=== PATIENT | female | born 1955 | race Caucasian/White ===

== ENCOUNTER 2017-12-19 11:14 | Emergency (ER) | payer MEDICARE, MEDICAID ==
[~2017-12-19] VITALS: Ht 167.6 cm; Wt 74.5 kg
[~2017-12-19 11:14] MED LIST: ALBU8.5H4 IH; ALBU8.5H8 IH; ALBU8HFA PO; ESCI10TA45 PO; FLUT16SP2 BOTHNARES; GUAI120015 PO; HYDR50CA PO; ONDA8TAB6 PO; PREG75CA30 PO; PSEU-259 PO; [UNRECOGNIZED DRUG - CODE] IT
[2017-12-19 11:48] LABS: CLARITY,URINE CLEAR (Clear); COLOR,URINE YELLOW (Yellow); GLUCOSE, URINE NEGATIVE (Neg); KETONES,URINE NEGATIVE (Neg); LEUKOCYTE ESTERASE ,URINE NEGATIVE (Neg); NITRITES, URINE NEGATIVE (Neg); OCCULT BLOOD,URINE SMALL (Neg); PH,URINE 6.5 (4.8-8.0); PROTEIN,URINE NEGATIVE (Neg); UROBILINOGEN,URINE 0.2 E.U/dL (0.2-1.0)
[2017-12-19 11:50] LABS: UA COLLECTION TYPE CLN CATCH MIDSTREAM
[2017-12-19 11:57] LABS: BACTERIA,URINE NONE SEEN /HPF (Neg); RBC,URINE 0-2 /HPF (0-2); SQUAMOUS EPITHELIAL CELL,UR FEW /LPF (FEW); WBC,URINE 0-4 /HPF (0-4)
[2017-12-19] MEDS ORDERED: IBUP-1984 PO (11:59)
[2017-12-19 12:04] VITALS: BP 146/75
== END 2017-12-19 12:05 | disposition home or self-care (01) ==
LOC: ER 11:15
DX: N23 Unspecified renal colic (principal); I10 Essential (primary) hypertension; M79.7 Fibromyalgia; F12.10 Cannabis abuse, uncomplicated; Z98.890 Other specified postprocedural states; Z88.8 Allergy status to other drugs, medicaments and biological substances; Z79.899 Other long term (current) drug therapy
CPT/HCPCS: 81001; 99283

== ENCOUNTER 2018-03-10 19:25 | Emergency (ER) | payer MEDICARE, MEDICAID ==
[~2018-03-10] VITALS: Ht 167.6 cm; Wt 71.0 kg
[2018-03-10 19:51] VITALS: BP 128/88
[2018-03-10] MEDS ORDERED: dexamethasone 4mg tablet PO ONE (22:05)
[2018-03-10] MEDS ORDERED: naproxen 500mg tablet PO ONE (22:05)
[2018-03-10] MEDS ORDERED: diphenhydrAMINE 25 MG/10 ML UD oral solution PO ONE (22:05)
[2018-03-10] MEDS ORDERED: NAPR-56 PO (22:06)
== END 2018-03-10 22:37 | disposition home or self-care (01) ==
LOC: ER 19:26
DX: H92.02 Otalgia, left ear (principal); R50.9 Fever, unspecified; I10 Essential (primary) hypertension; M19.90 Unspecified osteoarthritis, unspecified site; F12.90 Cannabis use, unspecified, uncomplicated; Z90.710 Acquired absence of both cervix and uterus; Z98.890 Other specified postprocedural states; Z88.1 Allergy status to other antibiotic agents; Z88.8 Allergy status to other drugs, medicaments and biological substances; Z79.899 Other long term (current) drug therapy
CPT/HCPCS: 99284; J8540; Q0163

== ENCOUNTER 2018-06-22 16:44 | Emergency (ER) | payer MEDICARE, MEDICAID ==
[~2018-06-22] VITALS: Ht 167.6 cm; Wt 71.0 kg
[2018-06-22 17:12] VITALS: BP 138/87
[2018-06-22] MEDS ORDERED: SULF1TAB49 PO (17:54)
== END 2018-06-22 18:03 | disposition home or self-care (01) ==
LOC: ER 16:44
DX: L02.416 Cutaneous abscess of left lower limb (principal); I10 Essential (primary) hypertension; M19.90 Unspecified osteoarthritis, unspecified site; F12.90 Cannabis use, unspecified, uncomplicated; Z90.710 Acquired absence of both cervix and uterus; Z88.1 Allergy status to other antibiotic agents; Z88.8 Allergy status to other drugs, medicaments and biological substances; Z79.899 Other long term (current) drug therapy
CPT/HCPCS: 99283

== ENCOUNTER 2018-09-18 11:38 | Emergency (ER) | payer MEDICARE, MEDICAID ==
[~2018-09-18] VITALS: Ht 160 cm; Wt 73.6 kg
[~2018-09-18 11:38] MED LIST changes: +FLUC200T PO
[2018-09-18 11:41] VITALS: BP 147/96
[2018-09-18] MEDS ORDERED: MUPI22OI30 TOP (12:42)
== END 2018-09-18 13:11 | disposition home or self-care (01) ==
LOC: ER 11:38
DX: L73.8 Other specified follicular disorders (principal); I10 Essential (primary) hypertension; M19.90 Unspecified osteoarthritis, unspecified site; F12.90 Cannabis use, unspecified, uncomplicated; Z90.710 Acquired absence of both cervix and uterus; Z98.890 Other specified postprocedural states; Z88.1 Allergy status to other antibiotic agents; Z88.8 Allergy status to other drugs, medicaments and biological substances; Z79.899 Other long term (current) drug therapy
CPT/HCPCS: 99283

== ENCOUNTER 2018-12-31 11:59 | Emergency (ER) | payer MEDICARE, MEDICAID ==
[~2018-12-31] VITALS: Ht 170.2 cm; Wt 72.7 kg
[2018-12-31 12:09] VITALS: BP 140/82
[2018-12-31] MEDS ORDERED: HYDROcodone/acetaminophen 5mg/325mg tablet PO ONE (12:30)
[2018-12-31] MEDS ORDERED: metroNIDAZOLE 500mg tablet PO ONE (12:30)
[2018-12-31] MEDS ORDERED: ciprofloxacin 250mg tablet PO ONE (12:30)
[2018-12-31] MEDS ORDERED: ondansetron 4mg rapidly disintigrating tab PO ONE (12:30)
[2018-12-31] MEDS ORDERED: BISA-155 PO (12:31)
[2018-12-31] MEDS ORDERED: POLY119P2 PO (12:31)
[2018-12-31] MEDS ORDERED: ONDA8TAB6 PO (12:31)
[2018-12-31] MEDS ORDERED: METR-159 PO (12:31)
[2018-12-31] MEDS ORDERED: sulfamethoxazole/trimethoprim DS (800/160mg) tablet PO ONE (12:35)
[2018-12-31] MEDS ORDERED: SULF1TAB49 PO (12:36)
== END 2018-12-31 12:58 | disposition home or self-care (01) ==
LOC: ER 12:00
DX: K57.92 Diverticulitis of intestine, part unspecified, without perforation or abscess without bleeding (principal); K59.00 Constipation, unspecified; I10 Essential (primary) hypertension; M19.90 Unspecified osteoarthritis, unspecified site; F12.90 Cannabis use, unspecified, uncomplicated; Z90.710 Acquired absence of both cervix and uterus; Z88.1 Allergy status to other antibiotic agents; Z88.8 Allergy status to other drugs, medicaments and biological substances
CPT/HCPCS: 99284; J3490

== ENCOUNTER 2019-01-25 15:11 | Emergency (ER) | payer MEDICARE, MEDICAID ==
[~2019-01-25] VITALS: Ht 167.6 cm; Wt 75.0 kg
[~2019-01-25 15:11] MED LIST changes: +BISA-155 PO; +POLY119P2 PO
[2019-01-25 15:58] LABS: BASOPHILS % (AUTO) 0.4 % (0-1); EOSINOPHILS # (AUTO) 0.1 X10'3 (0-0.9); EOSINOPHILS % (AUTO) 1.4 % (0-6); HEMATOCRIT 37.6 % (35.0-45.0); HEMOGLOBIN 13.2 g/dl (12.0-16.0); LYMPHOCYTES # (AUTO) 2.8 X10'3 (1.1-4.8); LYMPHOCYTES % (AUTO) 33.8 % (21-51); MEAN CORPUSCULAR HEMOGLOBIN 30.8 PG (27.0-31.0); MEAN CORPUSCULAR HGB CONC 35.2 g/dL (33.0-36.5); MEAN CORPUSCULAR VOLUME 87.7 FL (78-98); MEAN PLATELET VOLUME 6.5 FL (7.4-10.4); MONOCYTES # (AUTO) 0.4 X10'3 (0-0.9); MONOCYTES % (AUTO) 5.3 % (2-12); NEUTROPHILS # (AUTO) 4.8 X10'3 (1.8-7.7); NEUTROPHILS % (AUTO) 59.1 % (42-75); PLATELET COUNT 229 X10'3 (140-440); RED BLOOD COUNT 4.28 X10'6 (4.20-5.60); RED CELL DISTRIBUTION WIDTH 13.7 % (11.5-14.5); WHITE BLOOD COUNT 8.2 X10'3 (4.5-11.0)
[2019-01-25 16:05] LABS: ALANINE AMINOTRANSFERASE 21 U/L (12-78); ALBUMIN 3.4 G/DL (3.4-5.0); ALKALINE PHOSPHATASE 86 IU/L (46-116); ANION GAP 8 (8-16); ASPARTATE AMINO TRANSFERASE 22 U/L (10-37); BILIRUBIN,TOTAL 0.3 MG/DL (0.1-1.0); BLOOD UREA NITROGEN 18 MG/DL (7-18); BUN/CREATININE RATIO 15.9 (6.6-38.0); CALCIUM 8.9 MG/DL (8.5-10.1); CHLORIDE 107 MMOL/L (99-107); CREATININE 1.13 MG/DL (0.40-0.90); GLUCOSE 102 MG/DL (70-104); POTASSIUM 4.2 MMOL/L (3.5-5.1); SODIUM 139 MMOL/L (135-145); TOTAL CARBON DIOXIDE 24.5 MMOL/L (24-32); TOTAL PROTEIN 6.9 G/DL (6.4-8.2); eGFR 49 ML/MIN
[2019-01-25 16:44] LABS: LIPASE 334 U/L (73-393)
[2019-01-25] MEDS: morphine 4 MG/ML inj SYRINge IV PRN (17:10)
[2019-01-25] MEDS: ondansetron/PF 4mg/2ml inj IV ONE (17:11)
[2019-01-25] MEDS: normal saline 1000ML IV soln IVB ONE (17:11)
[2019-01-25] MEDS ORDERED: HYDR-3965 PO (17:34)
[2019-01-25 17:50] VITALS: BP 173/88
== END 2019-01-25 17:55 | disposition home or self-care (01) ==
LOC: ER 15:12
DX: K62.89 Other specified diseases of anus and rectum (principal); R10.31 Right lower quadrant pain; I10 Essential (primary) hypertension; M19.90 Unspecified osteoarthritis, unspecified site; G89.29 Other chronic pain; M79.7 Fibromyalgia; F41.9 Anxiety disorder, unspecified; F32.9 Major depressive disorder, single episode, unspecified; F12.90 Cannabis use, unspecified, uncomplicated; Z90.710 Acquired absence of both cervix and uterus; Z98.890 Other specified postprocedural states; Z88.1 Allergy status to other antibiotic agents; Z88.8 Allergy status to other drugs, medicaments and biological substances; Z79.899 Other long term (current) drug therapy
CPT/HCPCS: 36415; 74176; 80053; 83690; 85025; 85610; 96374; 96375; 99284; J2270; J2405; J7030

== ENCOUNTER 2019-11-15 10:47 | Emergency (ER) | payer MEDICARE, MEDICAID ==
[~2019-11-15] VITALS: Ht 167.6 cm; Wt 75.1 kg
[2019-11-15 11:39] LABS: CLARITY,URINE CLEAR (Clear); COLOR,URINE STRAW (Yellow); GLUCOSE, URINE NEGATIVE (Neg); KETONES,URINE NEGATIVE (Neg); LEUKOCYTE ESTERASE ,URINE NEGATIVE (Neg); NITRITES, URINE NEGATIVE (Neg); OCCULT BLOOD,URINE MODERATE (Neg); PH,URINE 6.5 (4.8-8.0); PROTEIN,URINE NEGATIVE (Neg); UA COLLECTION TYPE CLN CATCH MIDSTREAM; UROBILINOGEN,URINE 0.2 E.U/dL (0.2-1.0)
[2019-11-15 11:39] LABS: BASOPHILS # (AUTO) 0.1 X10'3 (0-0.2); BASOPHILS % (AUTO) 0.7 % (0-1); EOSINOPHILS # (AUTO) 0.1 X10'3 (0-0.9); EOSINOPHILS % (AUTO) 0.9 % (0-6); HEMATOCRIT 39.1 % (35.0-45.0); HEMOGLOBIN 13.1 g/dl (12.0-16.0); LYMPHOCYTES # (AUTO) 2.6 X10'3 (1.1-4.8); LYMPHOCYTES % (AUTO) 29.3 % (21-51); MEAN CORPUSCULAR HEMOGLOBIN 29.8 PG (27.0-31.0); MEAN CORPUSCULAR HGB CONC 33.4 g/dL (33.0-36.5); MEAN PLATELET VOLUME 6.6 FL (7.4-10.4); MONOCYTES # (AUTO) 0.4 X10'3 (0-0.9); MONOCYTES % (AUTO) 4.7 % (2-12); NEUTROPHILS # (AUTO) 5.8 X10'3 (1.8-7.7); NEUTROPHILS % (AUTO) 64.4 % (42-75); PLATELET COUNT 268 X10'3 (140-440); RED BLOOD COUNT 4.39 X10'6 (4.20-5.60); RED CELL DISTRIBUTION WIDTH 13.4 % (11.5-14.5)
[2019-11-15 11:48] LABS: SQUAMOUS EPITHELIAL CELL,UR MODERATE /LPF (FEW)
[2019-11-15 11:49] LABS: BACTERIA,URINE FEW /HPF (Neg); WBC,URINE 0-4 /HPF (0-4)
[2019-11-15 11:56] LABS: ALANINE AMINOTRANSFERASE 14 U/L (12-78); ALBUMIN 3.2 G/DL (3.4-5.0); ALBUMIN/GLOBULIN RATIO 0.9 (1.1-1.5); ALKALINE PHOSPHATASE 82 IU/L (46-116); ANION GAP 7 (8-16); ASPARTATE AMINO TRANSFERASE 19 U/L (10-37); BILIRUBIN,TOTAL 0.2 MG/DL (0.1-1.0); BLOOD UREA NITROGEN 13 MG/DL (7-18); BUN/CREATININE RATIO 12.4 (6.6-38.0); CALCIUM 8.6 MG/DL (8.5-10.1); CHLORIDE 109 MMOL/L (99-107); CREATININE 1.05 MG/DL (0.40-0.90); GLUCOSE 100 MG/DL (70-104); LIPASE 226 U/L (73-393); POTASSIUM 4.1 MMOL/L (3.5-5.1); SODIUM 143 MMOL/L (135-145); TOTAL CARBON DIOXIDE 27.5 MMOL/L (24-32); TOTAL PROTEIN 6.7 G/DL (6.4-8.2); eGFR 53 ML/MIN
[2019-11-15] MEDS ORDERED: ondansetron/PF 4mg/2ml inj IV ONE (12:00)
[2019-11-15] MEDS ORDERED: normal saline 1000ML IV soln IVB ONE (12:00)
[2019-11-15] MEDS ORDERED: ONDA4TAB6 PO (12:45)
[2019-11-15 13:05] VITALS: BP 111/61
== END 2019-11-15 13:21 | disposition home or self-care (01) ==
LOC: ER 10:48
DX: R11.2 Nausea with vomiting, unspecified (principal); R19.7 Diarrhea, unspecified; R10.10 Upper abdominal pain, unspecified; I10 Essential (primary) hypertension; M19.90 Unspecified osteoarthritis, unspecified site; G89.29 Other chronic pain; M79.7 Fibromyalgia; F41.9 Anxiety disorder, unspecified; F32.9 Major depressive disorder, single episode, unspecified; F12.90 Cannabis use, unspecified, uncomplicated; Z87.440 Personal history of urinary (tract) infections; Z90.710 Acquired absence of both cervix and uterus; Z98.890 Other specified postprocedural states; Z88.1 Allergy status to other antibiotic agents; Z88.8 Allergy status to other drugs, medicaments and biological substances; Z79.899 Other long term (current) drug therapy
CPT/HCPCS: 36415; 80053; 81001; 83690; 85025; 96361; 96374; 99283; J2405; J7030

== ENCOUNTER 2020-02-16 13:09 | Emergency (ER) | payer MEDICARE, MEDICAID ==
[~2020-02-16] VITALS: Ht 167.6 cm; Wt 70.0 kg
[~2020-02-16 13:09] MED LIST changes: -ALBU8.5H8 IH; -ALBU8HFA PO; -BISA-155 PO; -ESCI10TA45 PO; +EZET10TA48 PO; -FLUC200T PO; -FLUT16SP2 BOTHNARES; -GUAI120015 PO; +MILN50TA PO; +OMEP-50 PO; -ONDA8TAB6 PO; -POLY119P2 PO; -PREG75CA30 PO; -PSEU-259 PO; +SIMV-45 PO; -[UNRECOGNIZED DRUG - CODE] IT
[2020-02-16 13:17] VITALS: BP 144/101
== END 2020-02-16 15:07 | disposition home or self-care (01) ==
LOC: ER 13:10
DX: L98.9 Disorder of the skin and subcutaneous tissue, unspecified (principal); I10 Essential (primary) hypertension; F41.9 Anxiety disorder, unspecified; F32.9 Major depressive disorder, single episode, unspecified; G89.29 Other chronic pain; M19.90 Unspecified osteoarthritis, unspecified site; F12.90 Cannabis use, unspecified, uncomplicated; Z90.49 Acquired absence of other specified parts of digestive tract; Z98.890 Other specified postprocedural states; Z88.8 Allergy status to other drugs, medicaments and biological substances; Z79.899 Other long term (current) drug therapy
CPT/HCPCS: 99281

== ENCOUNTER 2020-02-19 07:25 | Inpatient (IN) | payer MEDICARE, MEDICAID ==
[2020-02-12 16:20] LABS: BASOPHILS % (AUTO) 0.3 % (0-1); EOSINOPHILS # (AUTO) 0.2 X10'3 (0-0.9); EOSINOPHILS % (AUTO) 1.4 % (0-6); LYMPHOCYTES # (AUTO) 3.5 X10'3 (1.1-4.8); LYMPHOCYTES % (AUTO) 32.6 % (21-51); MEAN CORPUSCULAR HEMOGLOBIN 29.9 PG (27.0-31.0); MEAN CORPUSCULAR HGB CONC 33.4 g/dL (33.0-36.5); MEAN CORPUSCULAR VOLUME 89.7 FL (78-98); MEAN PLATELET VOLUME 6.4 FL (7.4-10.4); MONOCYTES # (AUTO) 0.5 X10'3 (0-0.9); NEUTROPHILS # (AUTO) 6.5 X10'3 (1.8-7.7); NEUTROPHILS % (AUTO) 60.7 % (42-75); PRE OP HEMATOCRIT 42.6 % (35.0-45.0); PRE OP HEMOGLOBIN 14.2 g/dL (12.0-16.0); PRE OP PLATELET COUNT 264 X10'3 (140-440); RED BLOOD COUNT 4.75 X10'6 (4.20-5.60); RED CELL DISTRIBUTION WIDTH 13.6 % (11.5-14.5)
[2020-02-12 16:36] LABS: ALBUMIN 3.8 G/DL (3.4-5.0); ALBUMIN/GLOBULIN RATIO 1.1 (1.1-1.5); ALKALINE PHOSPHATASE 87 IU/L (46-116); BLOOD UREA NITROGEN 21 MG/DL (7-18); BUN/CREATININE RATIO 17.5 (6.6-38.0); CALCIUM 9.1 MG/DL (8.5-10.1); CHLORIDE 108 MMOL/L (99-107); PRE OP ALT 21 U/L (30-65); PRE OP ANION GAP 5 (8-16); PRE OP AST 18 U/L (10-37); PRE OP BILIRUB, TOTAL 0.2 MG/DL (0.0-1.0); PRE OP GLUCOSE 116 MG/DL (70-104); PRE OP POTASSIUM 3.8 MMOL/L (3.4-5.1); PRE OP SODIUM 141 MMOL/L (135-145); TOTAL CARBON DIOXIDE 28.4 MMOL/L (24-32); TOTAL PROTEIN 7.4 G/DL (6.4-8.2); eGFR 46 ML/MIN
[~2020-02-19] VITALS: Ht 167.6 cm; Wt 68.0 kg
[2020-02-19] VITALS (18 sets, daily range): BP systolic 137–170; BP diastolic 65–105
[~2020-02-19 07:25] MED LIST changes: +ceFAZolin 2gm in dextrose, iso 50 ML IV ONE; +famotidine 20mg tablet PO ONE; +ringers solution, lacted 1,000 ML IV SCH; +tranexamic acid inj. 680 MG in normal saline 100ml IV soln 100 ML IV ONE; +tranexamic acid inj. 680 MG in normal saline 100ml IV soln 93.2 ML IV ONE; +vancomycin/NS 1 GM ADD-VANTAGE 250 ML IV ONE
[2020-02-19] MEDS ORDERED: scopolamine 1.5mg patch.TD72 TD ONE (10:34)
[2020-02-19] MEDS ORDERED: ROPIVAcaine 0.5% (5mg/ml) 30ml vial ONE ×2 (11:03→11:54)
[2020-02-19] MEDS ORDERED: ketorolac trometh. 30mg/ml inj. ONE (11:22)
[2020-02-19] MEDS ORDERED: fentaNYL/PF 50MCG/1 ML 2ML syringe ONE (11:51)
[2020-02-19] MEDS ORDERED: MIDAZolam 5mg/5ml vial ONE (11:52)
[2020-02-19] MEDS ORDERED: sevoflurane 250ml liquid IH ONE (11:53)
[2020-02-19] MEDS ORDERED: propofol inj 20 ML IV ONE (11:54)
[2020-02-19] MEDS ORDERED: ringers solution, lacted 1,000 ML IV SCH (13:46)
[2020-02-19] MEDS ORDERED: ROPIVAcaine 0.2%/PF PUMP/bolus 550 ML INTERSCALE SCH (13:46)
[2020-02-19] MEDS ORDERED: proCHLORperazine 10 MG/2 ml inj IV PRN ×2 (13:50→21:10)
[2020-02-19] MEDS ORDERED: ondansetron/PF 4mg/2ml inj IV PRN (13:50)
[2020-02-19] MEDS ORDERED: morphine 2 MG/ML inj. syringe IV PRN (13:50)
[2020-02-19] MEDS ORDERED: morphine 4 MG/ML inj SYRINge IV PRN (13:50)
[2020-02-19] MEDS ORDERED: ROPIVAcaine 0.2% (10 MG/5 ML) BOLUS INJECTION INTERSCALE PRN (13:50)
[2020-02-19] MEDS ORDERED: meperidine/PF 25mg/ml syringe IV PRN ×3 (13:50)
--- NOTE | 2020-02-19 14:30 | NUR ---
Received from OR via BED, accompanied by Anesthesiologist STEVEN and report given by Anesthesiolgist. PT SLEEPY, OXYGENATING WELL ON 10 LPM O2 VIA MASK, NO RESP DISTRESS NOTED. PT DENIES PAIN, HAD RISB. SEVERE NAUSEA WITH EMESIS. MEDICATED WITH ZOFRAN. R SHOULDER DSG CDI, SHOULDER WRAP IN PLACE WITH POWDER PACK. RUE IN SLING, ELBOW PROTECTED BY PILLOW. RADIAL PULSE PALP. SCDS ON, VSS.
[2020-02-19] MEDS ORDERED: bisacodyl 10mg suppository rectal RC PRN (15:00)
[2020-02-19] MEDS ORDERED: diphenhydrAMINE 25mg capsule PO PRN ×2 (15:00)
[2020-02-19] MEDS ORDERED: HYDROmorphone 1 mg/ml syringe IV PRN (15:00)
[2020-02-19] MEDS ORDERED: acetaminophen 325mg tablet PO PRN (15:00)
[2020-02-19] MEDS ORDERED: HYDROmorphone inj. 0.5 MG/0.5 ML DISP.SYRIN IV PRN (15:00)
[2020-02-19] MEDS ORDERED: magnesium hydroxide 30ml (MOM) UD suspension PO PRN (15:00)
[2020-02-19] MEDS ORDERED: oxyCODONE IR 5mg (immed. release) tablet PO PRN (15:00)
[2020-02-19] MEDS ORDERED: albuterol 2.5 MG/3 ML nebule NEB PRN (15:05)
--- NOTE | 2020-02-19 16:30 | NUR ---
Report called to receiving nurse. Transferred via BED Belongings WITH PT, 2 BAGS OF CLOTHING. NAUSEA RESOLVED, PT EATING ICE CHIPS. VOIDED VIA BSC.VSS. NO PAIN, ON-Q BALL HOOKED TO CATHETER PER ORDERS. TRANSFERRED TO ORTHO FLOOR IN STABLE CONDITION. Special Issues communicated to receiving nurse.
[2020-02-19] MEDS: potassium cl 20mEq in 1/2 NS 1,000 ML IV SCH (16:45)
[2020-02-19] MEDS: ceFAZolin 1GM/D5W- ADD-VANTAGE 50 ML IV SCH ×2 (17:37→23:26)
[2020-02-19] MEDS ORDERED: tranexamic acid inj. 680 MG in normal saline 100ml IV soln 100 ML IV ONE (18:00)
--- NOTE | 2020-02-19 18:28 | NUR ---
Problems reprioritized. Patient report given, questions answered & plan of care reviewed with Maryam CHEN.
[2020-02-19] MEDS ORDERED: vancomycin/NS 1 GM ADD-VANTAGE 250 ML IV SCH (20:00)
[2020-02-19] MEDS: MILNACIPRAN HCL 50 MG TABLET PO SCH (20:00)
[2020-02-19] MEDS: ondansetron/PF 4mg/2ml inj IV PRN (20:12)
[2020-02-19] MEDS ORDERED: atorvastatin 20mg tablet PO SCH (21:00)
[2020-02-19] MEDS ORDERED: hydrOXYzine 25 MG tablet PO SCH (21:00)
[2020-02-19] MEDS ORDERED: sennosides 8.6mg tablet PO SCH (21:00)
[2020-02-19] MEDS ORDERED: ezetimibe 10mg tablet PO SCH (21:00)
[2020-02-19] MEDS ORDERED: LORazepam 2 mg/ml vial IV PRN (21:10)
[2020-02-19] MEDS: acetaminophen 325mg tablet PO SCH (21:54)
[2020-02-20 02:00] VITALS: BP 154/94
[2020-02-20] MEDS: acetaminophen 325mg tablet PO SCH ×3 (02:10→13:43)
[2020-02-20] MEDS: potassium cl 20mEq in 1/2 NS 1,000 ML IV SCH ×2 (02:15→08:14)
[2020-02-20] MEDS: oxyCODONE IR 5mg (immed. release) tablet PO PRN ×3 (03:03→13:43)
[2020-02-20 06:10] VITALS: BP 117/70
--- NOTE | 2020-02-20 06:22 | NUR ---
Problems reprioritized. Patient report given, questions answered & plan of care reviewed with GUSTAVO WORTHY.
--- NOTE | 2020-02-20 06:26 | NUR ---
Patient in room ORTHO 4012. I have received report from Maryam CHEN and had the opportunity to ask questions and assume patient care.
[2020-02-20 07:23] LABS: BASOPHILS % (AUTO) 0.3 % (0-1); EOSINOPHILS % (AUTO) 0.1 % (0-6); HEMOGLOBIN 11.3 g/dl (12.0-16.0); LYMPHOCYTES # (AUTO) 1.4 X10'3 (1.1-4.8); LYMPHOCYTES % (AUTO) 13.1 % (21-51); MEAN CORPUSCULAR HEMOGLOBIN 30.4 PG (27.0-31.0); MEAN CORPUSCULAR HGB CONC 34.3 g/dL (33.0-36.5); MEAN CORPUSCULAR VOLUME 88.6 FL (78-98); MEAN PLATELET VOLUME 6.8 FL (7.4-10.4); MONOCYTES # (AUTO) 0.7 X10'3 (0-0.9); NEUTROPHILS # (AUTO) 8.8 X10'3 (1.8-7.7); NEUTROPHILS % (AUTO) 80.5 % (42-75); PLATELET COUNT 201 X10'3 (140-440); RED BLOOD COUNT 3.72 X10'6 (4.20-5.60); RED CELL DISTRIBUTION WIDTH 13.2 % (11.5-14.5); WHITE BLOOD COUNT 10.9 X10'3 (4.5-11.0)
[2020-02-20] MEDS ORDERED: pantoprazole 40mg Tablet.DR PO SCH (07:30)
[2020-02-20 07:39] LABS: ANION GAP 10 (8-16); CHLORIDE 107 MMOL/L (99-107); POTASSIUM 4.6 MMOL/L (3.5-5.1); SODIUM 141 MMOL/L (135-145); TOTAL CARBON DIOXIDE 24.4 MMOL/L (24-32)
[2020-02-20] MEDS ORDERED: ASPI-1 PO (07:56)
[2020-02-20] MEDS ORDERED: ONQPUMP ADDCANAL (07:56)
[2020-02-20] MEDS: MILNACIPRAN HCL 50 MG TABLET PO SCH (08:00)
[2020-02-20] MEDS: ondansetron/PF 4mg/2ml inj IV PRN (08:07)
[2020-02-20] MEDS ORDERED: aspirin 325mg tablet PO SCH (08:30)
[2020-02-20 10:00] VITALS: BP 184/73
[2020-02-20 14:00] VITALS: BP 143/84
--- NOTE | 2020-02-20 14:45 | NUR ---
Patient was discharged at this time and she was taught all dc instructions. She was taken to vehicle in WC
[2020-02-21] MEDS ORDERED: acetaminophen 325mg tablet PO PRN (15:00)
--- NOTE | 2020-02-22 14:14 | NUR ---
Case Management DC follow up: spoke to pt via telephone. s/p: R shoulder reverse TSA, bicep tenodesis. Reports:"feeling pretty darned good" Denies: acute/continuous CP, emergent SOB, resp distress, N/V, COBOS, blurry vision, vertigo, syncope episodes, weakness,emergent general pain, abd tenderness/distension, bladder pain, dysuria, polyuria, hematuria, retention, diarrhea, fever, unexplained bleeding, bruising. Denies s/s infection to surg site. pt is looking forward to showering on tuesday per DC instructions. Verbalizes understanding of s/s that warrant 04-18/ER visit for further evaluation. Verbalizes understanding of new Rx: asa 325 6 wks and why prescribed, resumes current Rx, taking as ordered, no ase r/t polypharmacy. Acknowledges need to schedule/keep follow up appts w/ PCP/Rosio Madrigal, will call to schedule. Dr Latif scheduled. Pt agrees to contact office to confirm that PT is being set up on an outpatient basis. Verbalizes compliance w/DC aftercare. Needs met, questions answered at DC, no further questions or concerns at this time.
== END 2020-02-20 13:45 | disposition home or self-care (01) | DRG 483 ==
LOC: UNDOADMIN 07:25 → PAS IN 07:25 → EDSTATUS 09:15 → PAS IN 14:56 → ORTHO 4S 16:55
PROVIDERS: ADMIT Orthopaedic Surgery; ATTEND Orthopaedic Surgery
PROC: 0LS30ZZ Reposition Right Upper Arm Tendon, Open Approach (ICD-10-PCS; 2020-02-19)
PROC: 3E0T3BZ Introduction of Anesthetic Agent into Peripheral Nerves and Plexi, Percutaneous Approach (ICD-10-PCS; 2020-02-19)
PROC: 0RRJ00Z Replacement of Right Shoulder Joint with Reverse Ball and Socket Synthetic Substitute, Open Approach (ICD-10-PCS; principal; 2020-02-19 11:53)
DX: M19.011 Primary osteoarthritis, right shoulder (principal); D62 Acute posthemorrhagic anemia; M75.121 Complete rotator cuff tear or rupture of right shoulder, not specified as traumatic; E78.5 Hyperlipidemia, unspecified; I10 Essential (primary) hypertension; M65.811 Other synovitis and tenosynovitis, right shoulder; M79.7 Fibromyalgia; F41.8 Other specified anxiety disorders; K21.9 Gastro-esophageal reflux disease without esophagitis; Z88.1 Allergy status to other antibiotic agents; Z80.9 Family history of malignant neoplasm, unspecified; Z84.89 Family history of other specified conditions; Z79.899 Other long term (current) drug therapy
CPT/HCPCS: 36415; 80051; 80053; 82948; 85025; 87081; 94760; 97110; 97161; 97530; A4565; A4618; A7000; C1776; G0378; J0690; J0780; J1885; J2060; J2175; J2250; J2405; J2704; J2795; J3010; J3370; J3480; J7120; Q0177

== ENCOUNTER 2021-02-24 09:58 | Emergency (ER) | payer BC, MEDICAID ==
[~2021-02-24] VITALS: Ht 167.6 cm; Wt 65.9 kg
[~2021-02-24 09:58] MED LIST changes: -MILN50TA PO; -OMEP-50 PO; +PANT-47 PO; -ceFAZolin 2gm in dextrose, iso 50 ML IV ONE; -famotidine 20mg tablet PO ONE; -ringers solution, lacted 1,000 ML IV SCH; -tranexamic acid inj. 680 MG in normal saline 100ml IV soln 100 ML IV ONE; -tranexamic acid inj. 680 MG in normal saline 100ml IV soln 93.2 ML IV ONE; -vancomycin/NS 1 GM ADD-VANTAGE 250 ML IV ONE
[2021-02-24] MEDS ORDERED: ketorolac tromethamine 15mg/ml inj. IM ONE (12:15)
[2021-02-24] MEDS ORDERED: HYDROcodone/acetaminophen 5mg/325mg tablet PO ONE (12:15)
[2021-02-24] MEDS ORDERED: CARI250T PO (12:39)
[2021-02-24] MEDS ORDERED: NAPR-56 PO (12:39)
[2021-02-24] MEDS ORDERED: HYDR-3965 PO (12:39)
[2021-02-24] MEDS ORDERED: BACL10TA PO (12:39)
[2021-02-24] MEDS ORDERED: triamcinolone acetonide 40mg/ml inj IM ONE (12:40)
[2021-02-24 12:48] VITALS: BP 155/89
== END 2021-02-24 13:16 | disposition home or self-care (01) ==
LOC: ER 09:58
DX: M51.16 Intervertebral disc disorders with radiculopathy, lumbar region (principal); I10 Essential (primary) hypertension; M19.90 Unspecified osteoarthritis, unspecified site; G89.29 Other chronic pain; M79.7 Fibromyalgia; M81.0 Age-related osteoporosis without current pathological fracture; F12.90 Cannabis use, unspecified, uncomplicated; Z87.440 Personal history of urinary (tract) infections; Z90.710 Acquired absence of both cervix and uterus; Z98.890 Other specified postprocedural states; Z79.899 Other long term (current) drug therapy; Z88.1 Allergy status to other antibiotic agents; Z88.8 Allergy status to other drugs, medicaments and biological substances; Z87.81 Personal history of (healed) traumatic fracture
CPT/HCPCS: 72131; 96372; 99284; J1885; J3301

== ENCOUNTER → 2021-03-24 | Emergency (ER) | payer BC, MEDICAID ==
[~2021-03-24] VITALS: Ht 167.6 cm; Wt 65.0 kg
[~2021-03-24] MED LIST changes: +BACL10TA PO; +CARI250T PO; +CYCL-1 PO; +CefTRIAXone/D5W-Rocephin 1gm 50 ML IV ONE; +HYDR-3965 PO; +LIDOcaine 5% patch TP ONE; +LORazepam 2 mg/ml vial IV ONE; +NAPR-56 PO; +ONDA4TAB6 PO; +famotidine/PF 10 mg/ml inj IV ONE; +haloperidol lactate 5mg/ml inj IM ONE; +ketorolac trometh. 30mg/ml inj. IV ONE; +metoclopramide 5 mg/ml inj IV ONE; +morphine 4 MG/ML inj SYRINge IV ONE; +normal saline 1000ml 1,000 ML IV ONE; +ondansetron/PF 4mg/2ml inj IV ONE; +orphenadrine citrate 60mg/2ml inj. IM ONE; +pantoprazole 40 MG vial IV ONE
[2021-03-24 06:45] LABS: CLARITY,URINE CLEAR (Clear); COLOR,URINE STRAW (Yellow); GLUCOSE, URINE NEGATIVE (Neg); KETONES,URINE NEGATIVE (Neg); LEUKOCYTE ESTERASE ,URINE NEGATIVE (Neg); NITRITES, URINE NEGATIVE (Neg); OCCULT BLOOD,URINE MODERATE (Neg); PH,URINE 5.5 (4.8-8.0); PROTEIN,URINE 30 mg/dl (Neg); UROBILINOGEN,URINE 0.2 E.U/dL (0.2-1.0)
[2021-03-24 06:47] LABS: UA COLLECTION TYPE CLN CATCH MIDSTREAM
[2021-03-24 06:57] LABS: BACTERIA,URINE 3+ /HPF (Neg); SQUAMOUS EPITHELIAL CELL,UR FEW /LPF (FEW); WBC,URINE NONE SEEN /HPF (0-4)
[2021-03-24 09:10] LABS: BASOPHILS # (AUTO) 0.1 X10'3 (0-0.2); BASOPHILS % (AUTO) 0.3 % (0-1); EOSINOPHILS # (AUTO) 0.1 X10'3 (0-0.9); EOSINOPHILS % (AUTO) 0.6 % (0-6); HEMATOCRIT 43.9 % (35.0-45.0); HEMOGLOBIN 14.5 g/dl (12.0-16.0); LYMPHOCYTES # (AUTO) 2.3 X10'3 (1.1-4.8); LYMPHOCYTES % (AUTO) 13.1 % (21-51); MEAN CORPUSCULAR HEMOGLOBIN 29.6 PG (27.0-31.0); MEAN CORPUSCULAR VOLUME 89.7 FL (78-98); MEAN PLATELET VOLUME 7.2 FL (7.4-10.4); MONOCYTES # (AUTO) 0.9 X10'3 (0-0.9); MONOCYTES % (AUTO) 4.8 % (2-12); NEUTROPHILS # (AUTO) 14.5 X10'3 (1.8-7.7); NEUTROPHILS % (AUTO) 81.2 % (42-75); PLATELET COUNT 334 X10'3 (140-440); RED BLOOD COUNT 4.89 X10'6 (4.20-5.60); RED CELL DISTRIBUTION WIDTH 14.1 % (11.5-14.5); WHITE BLOOD COUNT 17.8 X10'3 (4.5-11.0)
[2021-03-24 09:23] LABS: ALANINE AMINOTRANSFERASE 52 U/L (12-78); ALBUMIN 4.1 G/DL (3.4-5.0); ALBUMIN/GLOBULIN RATIO 1.1 (1.1-1.5); ALKALINE PHOSPHATASE 81 IU/L (46-116); ANION GAP 16 (8-16); ASPARTATE AMINO TRANSFERASE 47 U/L (10-37); BILIRUBIN,TOTAL 0.3 MG/DL (0.1-1.0); BLOOD UREA NITROGEN 22 MG/DL (7-18); BUN/CREATININE RATIO 20.4 (6.6-38.0); CALCIUM 9.5 MG/DL (8.5-10.1); CHLORIDE 107 MMOL/L (99-107); CREATININE 1.08 MG/DL (0.40-0.90); GLUCOSE 172 MG/DL (70-104); POTASSIUM 3.8 MMOL/L (3.5-5.1); SODIUM 143 MMOL/L (135-145); TOTAL CARBON DIOXIDE 19.8 MMOL/L (24-32); TOTAL PROTEIN 7.8 G/DL (6.4-8.2); eGFR 51 ML/MIN
[2021-03-24 09:30] LABS: LIPASE 175 U/L (73-393); TROPONIN I < 0.04 NG/ML (0.0-0.05)
[2021-03-24 10:44] LABS: URINE AMPHETAMINE SCREEN NEGATIVE (Neg); URINE BARBITUATE SCREEN NEGATIVE (Neg); URINE BENZODIAZEPINES SCREEN NEGATIVE (Neg); URINE CANNABINOID SCREEN POSITIVE (Neg); URINE COCAINE SCREEN NEGATIVE (Neg); URINE METHADONE SCREEN NEGATIVE (Neg); URINE OPIATE SCREEN NEGATIVE (Neg); URINE PHENCYCLIDINE SCREEN NEGATIVE (Neg)
[2021-03-24 12:41] VITALS: BP 152/79
== END | disposition home or self-care (01) ==
LOC: ER 06:09
DX: M54.5 Low back pain (principal); R11.2 Nausea with vomiting, unspecified; I10 Essential (primary) hypertension; M19.90 Unspecified osteoarthritis, unspecified site; G89.29 Other chronic pain; M79.7 Fibromyalgia; M81.0 Age-related osteoporosis without current pathological fracture; Z90.710 Acquired absence of both cervix and uterus; F12.90 Cannabis use, unspecified, uncomplicated; Z88.1 Allergy status to other antibiotic agents; Z88.8 Allergy status to other drugs, medicaments and biological substances; Z79.899 Other long term (current) drug therapy
CPT/HCPCS: 36415; 80053; 80305; 81001; 83690; 84145; 84484; 85025; 87088; 93005; 96361; 96365; 96372; 96375; 99284; C9113; J0696; J1630; J1885; J2060; J2270; J2360; J2405; J2765; J3490; J7030